=== PATIENT | female | born 1965 | race Caucasian/White ===

== ENCOUNTER 2021-10-23 10:45 | Outpatient (CLI) | payer OTHER, SELFPAY | END 2021-10-23 10:46 | disposition home or self-care (01) | PROVIDERS: PCP Physician Assistant Medical; Visit Provider Family Medicine | DX: R45.851 Suicidal ideations (principal) | CPT/HCPCS: A0425; A0429 ==

== ENCOUNTER 2023-08-25 09:21 | Day surgery (SDC) | payer OTHER, SELFPAY ==
[2023-08-25] VITALS (22 sets, daily range): BP systolic 98–152; BP diastolic 62–108; PULSE 61–121; RESP 12–22; TEMP 36.2–36.6; O2SAT 90–100; BMI 33.0
[2023-08-25] MEDS: LACTATED RINGERS 1000 ML 1,000 ML 100 ML IV ×2 (09:45→13:00)
[2023-08-25] MEDS: OXYCODONE (CR) 10 MG TAB.ER.12H PO (10:30)
[2023-08-25] MEDS: ACETAMINOPHEN 500 MG TABLET 1000 MG PO ×2 (10:30→22:41)
--- NOTE | 2023-08-25 12:22 | SUR.PREOP ---
TIME?OUT:?1223 PT/RN/MDA?VERIFICATION?OF?SURGICAL?SITE-RIGHT SHOULDER,?PROCEDURE,?NERVE BLOCK, AND?CONSENT OBTAINED?PRIOR?TO?INVASIVE?PROCEDURE.
[2023-08-25] MEDS: fentaNYL 100 MCG/2 ML inj IVP (12:25)
[2023-08-25] MEDS: MIDAZOLAM HCL 1 MG/ML inj IVP (12:25)
--- NOTE | 2023-08-25 12:31 | P.NB_ITS ---
Nerve Block Nerve Block Time Seen by Provider: 12:28 Date Seen: 08/25/23 Type of block requested by surgeon for post-operative analgesia: supraclavicular Side: right Time out performed: Yes Verification of patient name: Yes Verification of date of : Yes Site marking: site marked Name of person performing procedure: Abdi Continuous monitoring Was continuous monitoring of O2 sat, B/P, air sampling and monitoring, recorded every 15 minutes?: Yes Procedure Checklist: sterile prep, needles and gloves Ultrasound guided. Images saved: Yes Medications given in 5ml increments after negative aspiration: Ropivicaine %: 0.5 mL: 20 Needle gauge: 22 Decadron (mg): 10 Precedex (mcg): 25 Patient tolerated procedure well: Yes Block Charges Block Charge (with Pro Fee): Brachial Plexus Use of Ultrasound Machine for Block: Yes- US Guidance/pain block
--- NOTE | 2023-08-25 12:31 | W.ANESCHARGE ---
Anesthesia Charges Start Date/Time Anesthesia Start Date: 08/25/23 Anesthesia Start Time: 12:42 Stop Date/Time Anesthesia Stop Date: 08/25/23 Anesthesia Stop Time: 15:39
[2023-08-25] MEDS: CEFAZOLIN 2 GM INJ IVP (12:50)
[2023-08-25] MEDS: TRANEXAMIC ACID 100 MG/ML INJ 1000 MG IV (12:55)
--- NOTE | 2023-08-25 15:06 | CRLHL7_ITS ---
For Patients: As a result of the Cures Act, medical imaging exams and procedure reports are released immediately into your electronic medical record. You may view this report before your referring provider. If you have questions, please contact your health care provider. Indication: Postop Technique: Two views right shoulder Findings/Impression: Hardware from a right total shoulder arthroplasty is in satisfactory position. Bone alignment is normal. No sign of acute fracture. Postop changes are within normal limits. Dictated by Caleb Bazan MD @ 08/26/2023 7:34:01 AM (Electronically Signed)
--- NOTE | 2023-08-25 15:08 | PM.ORPRC ---
Procedure Note Date of procedure: 08/25/23 Procedure: PREOPERATIVE DIAGNOSIS: End-stage Right upper extremity glenohumeral joint osteoarthritis POSTOPERATIVE DIAGNOSIS: End-stage Right upper extremity glenohumeral joint osteoarthritis NAME OF OPERATION: Right upper extremity total shoulder arthroplasty SURGEON: Palmer Arzate MD BOOK SHELVER: Mray Bach PA-C, SULY Bray ANESTHESIA: General endotracheal ESTIMATED BLOOD LOSS: 200 mL COMPLICATIONS: None SPECIMENS: None DRAINS: None PREOPERATIVE ANTIBIOTICS: Ancef 2 grams IMPLANTS: 1. Tornier 40 small pegged glenoid component 2. Tornier # 4 humeral stem 3. 45 mm x 19 mm high eccentric humeral head INDICATIONS: The patient is a 57-year-old woman with a longstanding history of severe, unrelenting right shoulder pain secondary to end-stage glenohumeral joint osteoarthritis. Despite appropriate nonoperative management, including activity modification, anti-inflammatories, lmtw-[id number] pain medication, physical therapy, and injections they continue to have pain and disability. Operative intervention was offered. The risks, benefits and expected outcomes were discussed in detail. These included but were not limited to: Infection, bleeding, injury to blood vessel or nerve, venous thromboembolism. All questions were answered to their satisfaction. Use of an bindery library technical assistant was necessary throughout the case for patient positioning and safety, soft tissue retraction, and closure. PROCEDURE: General anesthesia was administered. The patient was placed in the lazy beach chair position on the operating room table. The right upper extremity was prepped and draped in the usual sterile fashion. A standard deltopectoral incision was made. Subcutaneous dissection was taken with electrocautery to the deltopectoral interval. The cephalic vein was mobilized, lateral branches were cauterized. We bluntly entered the deltopectoral interval. We freed up the deltoid. The upper 1/3 of the insertion of the pectoralis was divided with cautery. The static retractor was placed. The clavipectoral fascia and CA ligament were divided. The circumflex vessels were controlled with electrocautery. The biceps was dissected out of the bicipital groove, was tagged with a #2 FiberWire suture and divided proximally. A FiberWire suture was placed in the subscapularis. The subscap was subperiosteally elevated off of the lesser tuberosity. The humeral head was delivered into the wound. The intramedullary humeral cutting guide was placed. We made the cut at the anatomic neck, in 20? of retroversion. Humeral sounds were used. Broaches were used until rotational stability was achieved. The cut protector was placed. Attention was then turned to the glenoid. Hohmann retractors were placed posteriorly. The labrum and biceps stump were sharply debrided. The origin of the inferior glenohumeral ligaments were subperiosteally released off of the glenoid. The glenoid appeared to be a 40 small. The drill guide was placed centrally. The guide pin was placed. The reamer was used to concentric bone. The central drill hole was made. The drill guide was placed and single superior and 2 inferior drill holes were made. The trial glenoid component was placed and was an excellent fit. The glenoid was irrigated with normal saline then thoroughly dried. Cement was placed in the superior and inferior drill holes. The 40 small pegged glenoid component was placed and was impacted. This was an excellent fit. Attention then returned to the humerus. The trial humeral head was placed. We reduced the shoulder and took it through a range of motion. It was found to be stable with appropriate soft tissue tension. Trial humeral components were removed. We placed 2 x #2 FiberWire sutures through the lesser tuberosity for subsequent subscap repair. The biceps was tenodesed in the groove with sutures placed through drill holes, into the canal. We assembled the humeral component on the back table and impacted it into the canal. This had excellent purchase. The shoulder was reduced and was found to have appropriate soft tissue tension. We did a 3 min dilute Betadine solution soak. We irrigated the wound with 3 L of normal saline via pulse lavage. We repaired the subscapularis to the lesser tuberosity with our previously placed FiberWire sutures. The rotator interval was repaired with a #2 FiberWire suture. The deltopectoral interval was loosely reapproximated with an 0 Vicryl in an interrupted [id number] fashion. Subcutaneous tissues were closed with the 2-0 Vicryl and a running 3-0 Monocryl suture. The skin was sealed with glue. A dry dressing and sling were applied Sponge and needle counts were correct x2. The patient tolerated the procedure well, there were no apparent complications. They were awakened and extubated in the operating room, taken to the postanesthesia care unit in satisfactory condition. PLAN: The patient will be mobilized with physical therapy. The sling will be used for 6 weeks postoperatively. Active range of motion in forward flexion and abduction as tolerates. No external rotation greater than 0? for 6 weeks postoperatively. They will to be discharged to home once medically appropriate.
--- NOTE | 2023-08-25 15:40 | W.ANESCHARGE ---
Anesthesia Charges Start Date/Time Anesthesia Start Date: 08/25/23 Anesthesia Start Time: 12:42 Stop Date/Time Anesthesia Stop Date: 08/25/23 Anesthesia Stop Time: 15:39
[2023-08-25] MEDS: ONDANSETRON 2 MG/ML inj 4 MG IVP (15:52)
[2023-08-25] MEDS: METOCLOPRAMIDE HCL 5 MG/ML INJ 10 MG IVP (16:02)
--- NOTE | 2023-08-25 16:21 | SUR.PHASEI ---
patient met discharge criteria per anesthesia
[2023-08-25] MEDS: LACTATED RINGERS 1000 ML 1,000 ML 75 ML IV (16:56)
--- NOTE | 2023-08-25 17:03 | PM.IMCN1 ---
Date of Consult Patient: Kesha Patient Consult date: 08/25/23 Requesting Physician: Orthopedics Primary Care Provider: Pawan Bassett MD Consult Narrative Narrative: Lisa Grimaldo is a 57 year old female seen in consultation following right shoulder arthroplasty. Procedure performed by Dr. Arzate. No operative complications. Postoperatively she has been quite nauseated required multiple medications including ondansetron and metoclopramide. She has a history of postoperative nausea and vomiting. She is also still quite sedated postoperatively and has some mild hypoxia requiring supplemental oxygen. She reports no dyspnea. She does not have chronic lung disease. Preoperatively she reports she was doing well with no recent illness or injury. Preop physical did not identify any significant concerns for the perioperative time except her history of severe postoperative nausea and vomiting. Review of Systems Narrative: Patient reports no other concerns except as noted above. [facility] Medical History (Updated 08/25/23 @ 17:34 by Jay Parrish MD) Postoperative nausea and vomiting ?R11.2 - Nausea with vomiting, unspecified (ICD-10) ?Z98.890 - Other specified postprocedural states (ICD-10) Generalized anxiety disorder ?F41.1 - Generalized anxiety disorder (ICD-10) Pain disorder associated with psychological and physical factors ?F45.42 - Pain disorder with related psychological factors (ICD-10) PTSD (post-traumatic stress disorder) ?F43.10 - Post-traumatic stress disorder, unspecified (ICD-10) Psychogenic nonepileptic seizure ?F44.5 - Conversion disorder with seizures or convulsions (ICD-10) CKD (chronic kidney disease), stage II ?N18.2 - Chronic kidney disease, stage 2 (mild) (ICD-10) Thyroid disorder ?E07.9 - Disorder of thyroid, unspecified (ICD-10) Obsessive-compulsive disorders ?F42.9 - Obsessive-compulsive disorder, unspecified (ICD-10) Cervical pain ?M54.2 - Cervicalgia (ICD-10) GERD (gastroesophageal reflux disease) ?K21.9 - Gastro-esophageal reflux disease without esophagitis (ICD-10) Seizures ?R56.9 - Unspecified convulsions (ICD-10) Ulcerative colitis ?K51.90 - Ulcerative colitis, unspecified, without complications (ICD-10) Surgical History (Updated 08/25/23 @ 17:34 by Jay aPrrish MD) History of arthroplasty of right shoulder ?Z96.611 - Presence of right artificial shoulder joint (ICD-10) H/O spinal fusion ?Z98.1 - Arthrodesis status (ICD-10) History of tubal ligation ?Z98.51 - Tubal ligation status (ICD-10) History of hysterectomy ?Z90.710 - Acquired absence of both cervix and uterus (ICD-10) History of cholecystectomy (09/18/06) ?Z90.49 - Acquired absence of other specified parts of digestive tract (ICD-10) History of 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) ?Z96.642 - Presence of left artificial hip joint (ICD-10) History of arthroscopy of right shoulder (08/07/09) ?Z98.890 - Other specified postprocedural states (ICD-10) Family History (Updated 08/25/23 @ 17:22 by Jay Parrish MD) Father Diabetes Heart disease High blood pressure Lymphoma Mother High blood pressure Social History (Updated 08/25/23 @ 17:23 by Jay Parrish MD) Narrative: She lives alone in [place]. Her daughter is going to stay with her after surgery. Former cigarette smoker. He is not currently drink alcohol. What is your current living situation?: I presently have a place to live In the past 12 months, utilities in danger of being shut off: no In past 12 months, lack of transportation kept you from medical appts, meetings, work, or getting things needed for daily living: no In the past 12 mos, have been you worried that your food would run out before you had money to buy more?: never true In the past 12 mos, the food you bought just didn't last and you didn't have money to buy more?: never true Highest level of school completed/degree received: Bachelor's degree Smoking Status: Former smoker What tobacco products do you use: cigarettes Years smoked: 5 Smoking quit date/years: >15 years ago Do you use any of these nicotine containing products: None How often do you have a drink containing alcohol: never How often do you have six or more drinks on one occasion: Never AUDIT-C Alcohol total score: 0 Non-prescribed substance use: denies use Caffeine: Yes (coffee daily) How often does anyone, including family, friends and others, physically hurt you: never How often does anyone, including family, friends and others, insult or talk down to you: never How often does anyone, including family, friends and others, threaten you with harm: never How often does anyone, including family, friends and others, scream or curse at you: never service: No Meds Home Medications and Allergies Home Medications ?Medication ?Instructions ?Recorded ?Confirmed ?Type meclizine 25 mg tablet 25 mg PO 3XD PRN 08/10/23 08/25/23 History cranberry 500 mg capsule 1,000 mg PO QHS 08/18/23 08/25/23 History cyanocobalamin (vitamin B-12) mcg IM MONTHLY 08/18/23 History 1,000 mcg/mL injection solution hydroxyzine HCl 25 mg tablet 25 mg PO BID PRN 08/18/23 08/25/23 History lamotrigine 200 mg tablet,extended 200 mg PO QHS 08/18/23 08/25/23 History release 24 hr levothyroxine 50 mcg tablet 50 mcg PO QHS 08/18/23 08/25/23 History polyethylene glycol 3350 17 4 g PO QDAY PRN 08/18/23 08/25/23 History gram/dose oral powder (Miralax) valacyclovir 500 mg tablet 500 mg PO QHS 08/18/23 08/25/23 History venlafaxine 75 mg capsule,extended 150 mg PO QHS 08/18/23 08/25/23 History release 24 hr Allergies Allergy/AdvReac Type Severity Reaction Status Date / Time adhesive tape AdvReac Verified 08/10/23 10:13 amoxicillin AdvReac Abdominal Verified 08/10/23 10:13 Pain diatrizoate sodium AdvReac Verified 08/10/23 10:13 Gadolinium-Containing AdvReac Verified 08/10/23 10:13 Contrast Medi lorazepam AdvReac Verified 08/10/23 10:13 nickel AdvReac Verified 08/10/23 10:13 NSAIDS (Non-Steroidal AdvReac Verified 08/10/23 10:13 Anti-Inflamma quetiapine AdvReac Verified 08/10/23 10:13 Exam Narrative: Exam Narrative: She is quite sleepy but arouses to voice. Breathing is unlabored. Oropharynx is normal except small airway. Neck is supple without mass or adenopathy. No jugular venous distension. Respirations are clear and symmetric. Cardiovascular: S1, S2, regular rate and rhythm. Abdomen: Bowel sounds active. Abdomen is soft without tenderness or mass. Right upper extremity is in a sling. She has diminished sensation, minimal movement in her fingers. It good capillary refill. Fingers are warm to touch. Good radial pulse. Left upper extremity and both lower extremities are normal without edema. Intact sensation and pulses. Intact motion. Const: Vital Signs, click to edit/add: Vital Signs - 24 hr 08/25/23 10:10 08/25/23 12:25 08/25/23 12:30 Temperature 97.1 F L Pulse Rate 61 61 62 Respiratory Rate 16 12 14 Blood Pressure 132/91 H 134/87 112/75 Pulse Oximetry 97 100 92 Oxygen Delivery Me thod Room Air Nasal Cannula Nasal Cannula Oxygen Flow Rate 3 3 08/25/23 15:35 08/25/23 15:40 08/25/23 15:45 Temperature 97.1 F L 97.1 F L 97.1 F L Pulse Rate 121 H 98 100 Respiratory Rate 16 22 17 Blood Pressure 147/99 H 152/89 H 137/96 H Pulse Oximetry 93 92 93 Oxygen Delivery Me thod Nasal Cannula Nasal Cannula Nasal Cannula Oxygen Flow Rate 3 3 3 08/25/23 15:50 08/25/23 15:55 08/25/23 16:00 Temperature 97.1 F L 97.1 F L 97.1 F L Pulse Rate 87 80 81 Respiratory Rate 15 21 18 Blood Pressure 140/95 H 134/89 141/108 H Pulse Oximetry 94 93 95 Oxygen Delivery Me thod Nasal Cannula Nasal Cannula Nasal Cannula Oxygen Flow Rate 3 3 3 08/25/23 16:05 08/25/23 16:19 08/25/23 16:30 Temperature 97.8 F 97.2 F L 97.2 F L Pulse Rate 81 64 62 Respiratory Rate 15 14 14 Blood Pressure 130/88 109/73 106/69 Pulse Oximetry 91 90 94 Oxygen Delivery Me thod Nasal Cannula Nasal Cannula Nasal Cannula Oxygen Flow Rate 3 0.5 0.5 Documenting provider has reviewed patient's vital signs: yes Assessment and Plan Assessment and plan (1) History of arthroplasty of right shoulder: Problem comment: Dr. Arzate, 08/25/2023, no complications Status: Acute (2) Postoperative nausea and vomiting: Problem comment: Historically this has been a problem and will likely need aggressive treatment after this surgery Status: Acute (3) Postoperative hypoxia: Problem comment: Likely due to sedating affects of anesthesia, pain medications and anti nausea medications. Continue to monitor. Further evaluation if not resolving overnight Status: Acute Plan Patient is admitted the hospital for management of pain and postoperative nausea and vomiting and therapy following shoulder surgery. Continue to monitor and manage symptoms and other medical problems. Anticipate discharge to home tomorrow. Total Time Spent Total Time Spent: Total time spent today is 40 minutes in evaluation management
[2023-08-25] MEDS: CEFAZOLIN 2 GM in 0.9 % SODIUM CHLORIDE Mini-bag 100 ML IVPB (18:36)
[2023-08-25] MEDS: lamoTRIgine 100 MG TABLET 200 MG PO (20:10)
[2023-08-25] MEDS: LEVOTHYROXINE 50 MCG TABLET PO (20:10)
[2023-08-25] MEDS: VALACYCLOVIR HCL 500 MG TABLET PO (20:11)
[2023-08-25] MEDS: VENLAFAXINE ER 75 MG CAPSULE 150 MG PO (20:11)
[2023-08-25] MEDS: SENNOSIDES 1 TAB TABLET 2 TAB PO (20:11)
[2023-08-26] MEDS: SODIUM CHLORIDE 0.9 % (FLUSH) 10 ML SYRINGE IVF (02:59)
[2023-08-26] MEDS: CEFAZOLIN 2 GM in 0.9 % SODIUM CHLORIDE Mini-bag 100 ML IVPB (02:59)
[2023-08-26 03:00] VITALS: BP 96/67; PULSE 82; RESP 12; TEMP 36.7; O2SAT 91
--- NOTE | 2023-08-26 05:10 | PC.NURSE ---
[id number] Pt pleasant and cooperative, slept well during night. RUE in sling, ice to operative site, dressing C/D/I, denies any pain and pt still unable to move fingers, R hand warm to touch and radial pulse palpated. ambulating to BR with SBA, voiding without difficulty. no N/V this shift, tolerating PO intake.
[2023-08-26 06:42] LABS: Hematocrit 37.1 % (33.0-51.0); Hemoglobin* 12.3 gm/dL (12.0-16.0); Mean Corpuscular HGB Conc 33 gm/dL (32-36); Mean Corpuscular Hemoglobin 30 pg (26-34); Mean Corpuscular Volume 91 fL (80-100); Platelet Count* 254 K/uL (140-440); Red Blood Count 4.06 m/uL (4.00-5.20); White Blood Count* 9.56 K/uL (4.50-11.00)
[2023-08-26 06:47] LABS: Slide Review Reflex No
[2023-08-26 07:00] VITALS: BP 107/72; PULSE 76; RESP 20; TEMP 36.7; O2SAT 91
[2023-08-26 07:04] LABS: Potassium* 4.6 mmol/L (3.6-5.1); Sodium* 136 mmol/L (135-149)
[2023-08-26 07:07] LABS: Creatinine* 0.7 mg/dL (0.5-1.5); Estimated Glomerular Filt Rate 102 ml/min
[2023-08-26 07:08] LABS: Blood Urea Nitrogen* 17 mg/dL (7-30)
--- NOTE | 2023-08-26 08:06 | PM.ORPN ---
Subjective Subjective Time Seen by Provider: 07:45 Date Seen: 08/26/23 Principal diagnosis: Status post right shoulder replacement Interval history: is comfortable this morning. She has no sensation in her right upper extremity and minimal motor. She is drowsy. She will be discharging to home today. Ortho Exam Narrative Exam Narrative: Alert and oriented x3. Patient is in no acute distress. Converses without labored breathing. Hearing is grossly intact. Ambulates with a normal gait., arm is in a sling. Examination of the right shoulder shows dressing is intact. No erythema or warmth or sign of infection. Ecchymosis is present. Minimal edema about the shoulder. She is able to slightly wiggle her thumb, otherwise no significant sensation or motor in the right upper extremity. The block is working well. Capillary refill less than 2 seconds. Const Vital Signs, click to edit/add: Vital Signs - 24 hr 08/25/23 10:10 08/25/23 12:25 08/25/23 12:30 Temperature 97.1 F L Pulse Rate 61 61 62 Pulse Rate [Left Pulse Oximeter] Respiratory Rate 16 12 14 Blood Pressure 132/91 H 134/87 112/75 Blood Pressure [Left Arm] Pulse Oximetry 97 100 92 Oxygen Delivery Method Room Air Nasal Cannula Nasal Cannula Oxygen Flow Rate 3 3 08/25/23 15:35 08/25/23 15:40 08/25/23 15:45 Temperature 97.1 F L 97.1 F L 97.1 F L Pulse Rate 121 H 98 100 Pulse Rate [Left Pulse Oximeter] Respiratory Rate 16 22 17 Blood Pressure 147/99 H 152/89 H 137/96 H Blood Pressure [Left Arm] Pulse Oximetry 93 92 93 Oxygen Delivery Method Nasal Cannula Nasal Cannula Nasal Cannula Oxygen Flow Rate 3 3 3 08/25/23 15:50 08/25/23 15:55 08/25/23 16:00 Temperature 97.1 F L 97.1 F L 97.1 F L Pulse Rate 87 80 81 Pulse Rate [Left Pulse Oximeter] Respiratory Rate 15 21 18 Blood Pressure 140/95 H 134/89 141/108 H Blood Pressure [Left Arm] Pulse Oximetry 94 93 95 Oxygen Delivery Method Nasal Cannula Nasal Cannula Nasal Cannula Oxygen Flow Rate 3 3 3 08/25/23 16:05 08/25/23 16:19 08/25/23 16:30 Temperature 97.8 F 97.2 F L 97.2 F L Pulse Rate 81 64 62 Pulse Rate [Left Pulse Oximeter] Respiratory Rate 15 14 14 Blood Pressure 130/88 109/73 106/69 Blood Pressure [Left Arm] Pulse Oximetry 91 90 94 Oxygen Delivery Method Nasal Cannula Nasal Cannula Nasal Cannula Oxygen Flow Rate 3 0.5 0.5 08/25/23 16:45 08/25/23 17:00 08/25/23 17:15 Temperature 97.5 F L 97.5 F L 97.6 F Pulse Rate 69 74 69 Pulse Rate [Left Pulse Oximeter] Respiratory Rate 14 14 14 Blood Pressure 105/68 114/67 105/62 Blood Pressure [Left Arm] Pulse Oximetry 92 92 92 Oxygen Delivery Method Room Air Room Air Room Air Oxygen Flow Rate 08/25/23 17:45 08/25/23 18:15 08/25/23 19:00 Temperature 97.5 F L 97.6 F 97.7 F Pulse Rate 71 71 79 Pulse Rate [Left Pulse Oximeter] Respiratory Rate 14 14 12 Blood Pressure 98/66 104/68 99/70 Blood Pressure [Left Arm] Pulse Oximetry 94 92 97 Oxygen Delivery Method Room Air Room Air Room Air Oxygen Flow Rate 0 08/25/23 20:00 08/25/23 21:00 08/25/23 21:57 Temperature 97.7 F 97.9 F 97.9 F Pulse Rate 79 73 76 Pulse Rate [Left Pulse Oximeter] Respiratory Rate 12 14 16 Blood Pressure 98/77 104/77 124/80 Blood Pressure [Left Arm] Pulse Oximetry 93 93 91 Oxygen Delivery Method Room Air Room Air Room Air Oxygen Flow Rate 0 0 0 08/25/23 23:00 08/25/23 23:00 08/26/23 03:00 Temperature 97.9 F 98.1 F Pulse Rate Pulse Rate [Left Pulse Oximeter] 76 82 Respiratory Rate 16 16 12 Blood Pressure Blood Pressure [Left Arm] 124/80 96/67 Pulse Oximetry 91 91 91 Oxygen Delivery Method Room Air Room Air Room Air Oxygen Flow Rate 0 0 0 Assessment and Plan Assessment and plan (1) History of arthroplasty of right shoulder: Problem details: Dr. Arzate, 08/25/2023, no complications Status: Acute Assessment and Plan: Plan for discharge is to home when they meet discharge criteria. Patient will wear the sling for 6 weeks post surgery. They can take it off for comfort and for exercises. Activity: no external rotation of the operative shoulder past 0? x 6 weeks. Forward flexion and abduction of the shoulder is allowed as tolerated. They will work on range of motion of the elbow, wrist, fingers once the block has wore off on the operative extremity. Patient will attend outpatient physical therapy for the operative shoulder . For discharge, oxycodone and Tylenol for pain. Do not drive while on narcotic pain medication. Drive only when safe to do so, when they have normal use/function of the upper extremity, this will likely take 6 weeks. Patient will minimize and discontinue the narcotic as soon as possible. Remove dressing in 1 week. Dressing is waterproof. May shower. Surgical glue covers the wound. Do not scrub the wound. Expect swelling and bruising about the shoulder and upper extremity. Use of ice/active ice without restriction. Notify Orthopedics if swelling is excessive. notify Orthopedics with any questions or concerns. [phone] Return to Orthopedic clinic next week for a wound check Return to clinic in [address] Arzate.
[2023-08-26] MEDS: SENNOSIDES 1 TAB TABLET 2 TAB PO (09:08)
[2023-08-26] MEDS: ACETAMINOPHEN 500 MG TABLET 1000 MG PO (11:15)
[2023-08-26] MEDS: OXYCODONE 5 MG TABLET PO (11:15)
--- NOTE | 2023-08-26 11:41 | PC.NURSE ---
Discharge: Patient alert and oriented. VSS. Ambulates independently. Tolerated a regular diet well. Pain in right arm was 4/10. PRN oxy and scheduled Tylenol given at 1100 for pain. Patient discharged at 1125 via ambulation, accompanied by daughter. Discharge education given and signed by RN and patient.
--- NOTE | 2023-08-27 13:29 | SUR.OPER ---
Verified PRoloff RN done with charting and verified Anesthesia end time.
== END 2023-08-26 11:25 | disposition home or self-care (01) ==
LOC: OR 09:23 → MEDSURG 09:25
PROVIDERS: PCP Family Medicine; Visit Provider Orthopaedic Surgery
PROC: 0RRJ0JZ Replacement of Right Shoulder Joint with Synthetic Substitute, Open Approach (ICD-10-PCS; CPT 23472; principal; 2023-08-25 11:45)
DX: M19.011 Primary osteoarthritis, right shoulder (principal); G89.18 Other acute postprocedural pain; R09.02 Hypoxemia; N18.2 Chronic kidney disease, stage 2 (mild); R11.2 Nausea with vomiting, unspecified; E66.01 Morbid (severe) obesity due to excess calories; Z68.35 Body mass index [BMI] 35.0-35.9, adult
CPT/HCPCS: 23472; 23430; 01638; 36415; 64415; 73030; 76942; 82565; 84132; 84295; 84520; 85027; 97166; A9270; C1776; J0330; J0690; J1100; J1630; J2250; J2371; J2405; J2704; J2765; J2795; J3010; J7120; L3670

== ENCOUNTER 2023-11-26 14:45 | Outpatient (RCR) | payer OTHER, SELFPAY ==
--- NOTE | 2023-08-18 12:28 | OT.OPOE ---
OT Outpatient Ortho Eval OT Outpatient Ortho Eval* Start: 08/18/23 10:52 Freq: Status: Active Protocol: Document 08/18/23 11:06 KRISTEN (Rec: 08/18/23 12:26 ANDREAPavithra [id number]) E-signed By Daisy Ramos, OTR/L, CLT OT OP Ortho Eval Details Complexity Complexity Low Insurance Information Other Insurance [employer] Outpatient History/Precautions Current Condition/Medical Diagnosis Referring Provider Dr. Palmer Arzate Medical Diagnoses M19.011 Primary Osteoarthritis of the R shoulder (Dominant UE) Treatment Diagnosis Pain in R shoulder, M25.511 Stiffness of R shoulder, M25. 611 Date of Onset Chronic Other Conditions Notable history of right shoulder arthroscopic Bankart repair (08/07/2009). She reports a 1-year history of pain in the collar bone, anterior shoulder, lateral shoulder into the shoulder blade and trapezius. Symptoms are worse with lifting and at night (will wake her up). She has modified her activities, tried ice and heat as well as spee-dlp-brhtqty medications. She has not had an injection and has not seen therapy. PMH and Surgical History includes but is not limited to : Active Problems: Osteoarthritis of right shoulder (Acute) M19.011 - Primary osteoarthritis, right shoulder (ICD-10) Cervical pain: M54.2 - Cervicalgia (ICD-10) GERD (gastroesophageal reflux disease): K21.9 - Gastro- esophageal reflux disease without esophagitis (ICD-10) Seizures: R56.9 - Unspecified convulsions (ICD-10) Ulcerative colitis: K51.90 - Ulcerative colitis, unspecified, without complications (ICD-10) H/O spinal fusion Z98.1 - Arthrodesis status ( ICD-10) History of tubal ligation Z98.51 - Tubal ligation status (ICD-10) History of hysterectomy Z90.710 - Acquired absence of both cervix and uterus (ICD-10 ) History of cholecystectomy () Z90.49 - Acquired absence of other specified parts of digestive tract (ICD-10) History of 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) Z96.642 - Presence of left artificial hip joint (ICD-10) History of arthroscopy of right shoulder (08/07/09) Z98.890 - Other specified postprocedural states (ICD-10) Medication List: cephalexin 2,000 mg (4 x 500 mg) PO ONCE cyanocobalamin (vitamin B-12) mcg IM fluconazole 150 mg PO Q3D hydroxyzine HCl 25 mg PO BID lamotrigine ER 200 mg PO DAILY levothyroxine 50 mcg PO DAILY meclizine 25 mg PO 3XD PRN valacyclovir 500 mg PO DAILY venlafaxine ER mg PO BID Medical/Functional History Medical History Reviewed Yes Prior Level of Function/Mobility Lives alone in an Indep living [address]+ condo in [place] Works NOC shift, 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 Pain Assessment Pain Pain Yes Pain Comments 08/25 R shoulder pain at rest and with activity it increases in the moment of the activity (lifting and rolling which are primary job duties). Patient works as a Hospice nurse Range of Motion and Strength Shoulder Range of Motion and Strength Shoulder Range of Motion and Strength IMAGING: Grashey and axillary views of the right shoulder were obtained today. These show glenohumeral joint space narrowing, not [id number]. There is no proximal migration humeral head. MRI of the right shoulder dated 08/03/2023 from [facility] shows diffuse grade 3/4 change in the glenohumeral joint with several osteochondral loose bodies. The rotator cuff is intact. ASSESSMENT: History of right shoulder arthroscopic Bankart repair () End-stage right shoulder glenohumeral osteoarthritis Mild subscapularis tendinopathy OT Problems Problems Problems Decreased Strength,Decreased Range of Motion,Pain,Lifting, Gripping,Pinching Other Problems Opening Containers,Dressing, Sleeping Patient Potential Good Assessment Assessment Assessment 57-year-old R hand dominant female is scheduled for a right total shoulder arthroplasty on 08/25/[address] John Arzate. 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 Therapist is recommending that patient purchase a grabber ( to assist her with pulling clothes out of the washing machine and dryer) as well as a Tub Shower Bench as she only has a tub shower bench in her apt (with curtain and handheld shower head). Patient agrees with the recommended equipment and states she will have her daughter help her get these items. Patient has an elevator in her building and is not planning on doing any steps/stairs (states she already avoids these as her balance is poor). Patient has a SPC but ambulates w/o a device. After her POLO she used a FWW for a short time period . Occupational Therapy Treatment Plan - OP Potential Rehabilitation Potential Good Barriers Barriers to goal attainment Electronic Cigarettes (Vaping) Vaping Status: Current everyday user Seizure Disorder Set Goals Goals Set with Patient Yes Goals Goals 1. Patient will be Indep with her post-op HEP for R TSA 2. Patient will gain an understanding of their post-op restrictions/precautions. 3. Patient will demonstrate the ability to accurately jacki /doff the UE sling Independently Target Date 08/19/23 Treatment Plan Treatment Plan Evaluation,Therapeutic Exercise Expected Frequency EVAL ONL Expected Duration 2-4 Weeks Home Program Home Program Home Program Initiated Home Program Specifics Dr. Arzate post-op protocol was given to patient (handout has descriptions and pictures) Reviewed each exercise with patient with successful teach back, patient able to return demo with accuracy Certification Certification Statement I Certify That: Therapy Services Provided, Therapy Plan Established, Therapy Plan Reviewed Certification Information Clinic ID # [id number] Initial Certification Date 08/18/23 Recertification Due Date 08/23/23 Provider Signature Required Yes Provider Signature Shows Agreement With POC & Medical Necessity Physician NPI Number Write NPI# Here Physician Comment/Change Comment or Changes Physician Signature & Date Requested Please Sign/Date Here
== END 2024-01-19 16:05 | disposition home or self-care (01) ==
PROVIDERS: PCP Physician Assistant Medical; Visit Provider Orthopaedic Surgery
DX: M19.011 Primary osteoarthritis, right shoulder (principal); Z96.611 Presence of right artificial shoulder joint; Z51.89 Encounter for other specified aftercare
CPT/HCPCS: 97032; 97110; 97140; 97161; 97165; J0330; J1100; J2405; J2704; X5282

== ENCOUNTER 2023-12-03 10:50 | Outpatient (CLI) | payer OTHER, SELFPAY ==
--- NOTE | 2023-12-03 11:00 | CRLHL7_ITS ---
For Patients: As a result of the Century Cures Act, medical imaging exams and procedure reports are released immediately into your electronic medical record. You may view this report before your referring provider. If you have questions, please contact your health care provider. INDICATION: Pain postop right shoulder surgery TECHNIQUE: Ultrasound venous duplex upper right extremity. Compression venous exam was performed using forbes-scale, color Doppler, and spectral Doppler imaging. COMPARISON: None. FINDINGS: Right jugular vein shows normal compressibility and waveforms. Normal waveforms within the right brachiocephalic and subclavian veins. Right axillary, brachial, basilic, cephalic, radial and ulnar veins show normal compressibility and waveforms. Normal left jugular vein compressibility. IMPRESSION: No evidence of deep venous thrombosis right upper extremity. Dictated by Marino Lewis MD @ 12/03/2023 12:18:07 PM (Electronically Signed)
== END 2023-12-03 10:51 | disposition home or self-care (01) ==
LOC: US 10:51
PROVIDERS: PCP Family Medicine; Visit Provider Physician Assistant
DX: M25.511 Pain in right shoulder (principal); Z96.611 Presence of right artificial shoulder joint
CPT/HCPCS: 93971